=== PATIENT | female | born 1950 | race Caucasian/White ===

== ENCOUNTER 2024-01-03 09:13 | Day surgery (SDC) | payer OTHER, BC ==
[2023-12-29 17:27] VITALS: BMI 25.2
[2024-01-03 10:00] VITALS: RESP 18
[2024-01-03 12:32] VITALS: BP 138/82; PULSE 85; TEMP 97
== END 2024-01-03 12:03 | disposition home or self-care (01) ==
LOC: FASU-ENDO 09:13
PROVIDERS: ATTEND Internal Medicine Gastroenterology
PROC: 0DJD8ZZ Inspection of Lower Intestinal Tract, Via Natural or Artificial Opening Endoscopic (ICD-10-PCS; principal; 2024-01-03 11:07)
DX: K64.8 Other hemorrhoids (principal); K64.9 Unspecified hemorrhoids
CPT/HCPCS: 82962